=== PATIENT | female | born 1950 | race American Indian/Alaskan Native ===

== ENCOUNTER 2016-07-07 16:45 | Emergency (ER) | payer MEDICARE ==
[2016-07-07 16:50] VITALS: BP 151/79; PULSE 89; RESP 18; TEMP 99.1
--- NOTE | 2016-07-07 17:28 | RAD ---
HISTORY: cough COMPARISON: Chest x-ray performed 08/19/14 TECHNIQUE: Chest PA and lateral FINDINGS: Examination limited by habitus. LUNGS: No focal consolidation. Please note that chest x-ray has limited sensitivity for the detection of pulmonary masses. PLEURA: No significant pleural effusion identified. No definite pneumothorax . CARDIOVASCULAR: Heart size appears within normal limits. Faint atherosclerotic calcifications of the aorta. OSSEOUS STRUCTURES: Degenerative changes of the spine. VISUALIZED UPPER ABDOMEN: Unremarkable. OTHER FINDINGS: None. IMPRESSION: No focal consolidation, significant pleural effusion, or definite pneumothorax identified.
--- NOTE | 2016-07-07 17:36 | C.PDOC ---
<Mirella Boston - Last Filed: 07/07/16 17:34> <ShaheedJudy bedolla - Last Filed: 07/07/16 17:56> Time Seen by Provider: 07/07/16 17:07 Chief Complaint (Nursing): Cough, Cold, Congestion Past Medical History - Medical History PMH: Pneumonia (walking) Family History: States: Unknown Family Hx - Social History Hx Tobacco Use: No Hx Alcohol Use: No Hx Substance Use: No - Immunization History Hx Tetanus Toxoid Vaccination: No Hx Influenza Vaccination: No Hx Pneumococcal Vaccination: No <Mirella Boston - Last Filed: 07/07/16 17:34> Reviewed: Historical Data, Nursing Documentation, Vital Signs Family History: States: No Known Family Hx <Judy Hummel - Last Filed: 07/07/16 17:56> Vital Signs: Last Vital Signs Temp 99.1 F 07/07/16 16:48 Pulse 89 07/07/16 16:48 Resp 18 07/07/16 16:48 BP 151/79 H 07/07/16 16:48 Pulse Ox 95 07/07/16 17:56 Review Of Systems Except As Marked, All Systems Reviewed And Found Negative. Constitutional: Positive for: Other (myalgia). Negative for: Fever, Chills ENT: Positive for: Throat Pain Respiratory: Positive for: Cough. Negative for: Shortness of Breath Gastrointestinal: Negative for: Nausea, Vomiting, Abdominal Pain <Judy Hummel - Last Filed: 07/07/16 17:56> Physical Exam - Physical Exam Appears: Non-toxic, No Acute Distress Skin: Warm, Dry Head: Atraumatic, Normacephalic Eye(s): bilateral: PERRL, EOMI Ear(s): Bilateral: TM Obscured By Wax Nose: Normal Oral Mucosa: Moist Tongue: Normal Appearing Lips: Normal Appearing Throat: Normal Neck: Normal ROM, Supple Lymphatic: No Adenopathy Chest: Symmetrical Cardiovascular: Rhythm Regular Respiratory: Normal Breath Sounds, No Rales, No Rhonchi, No Wheezing Gastrointestinal/Abdominal: Soft, No Tenderness Back: Normal Inspection Extremity: Normal ROM Neurological/Psych: Oriented x3, Normal Speech, Normal Cognition Gait: Steady <Judy Hummel - Last Filed: 04/15/17 17:56> ED Course And Treatment O2 Sat by Pulse Oximetry: 95 <Mirella Boston - Last Filed: 07/07/16 17:34> O2 Sat by Pulse Oximetry: 95 (room air) Pulse Ox Interpretation: Normal - Other Rad chest x-ray X-Ray: Read By Radiologist (Lisa Christensen) Interpretation: HISTORY: cough. COMPARISON: Chest x-ray performed 08/19/14. TECHNIQUE: Chest PA and lateral. FINDINGS: Examination limited by habitus. LUNGS: No focal consolidation. Please note that chest x-ray has limited sensitivity for the detection of pulmonary masses. PLEURA: No significant pleural effusion identified. No definite pneumothorax . CARDIOVASCULAR: Heart size appears within normal limits. Faint atherosclerotic calcifications of the aorta. OSSEOUS STRUCTURES: Degenerative changes of the spine. VISUALIZED UPPER ABDOMEN: Unremarkable. OTHER FINDINGS: None. IMPRESSION: No focal consolidation, significant pleural effusion, or definite pneumothorax identified. <Judy Hummel - Last Filed: 07/07/16 17:56> Disposition Counseled Patient/Family Regarding: Diagnosis, Need For Followup - Disposition Disposition Time: 17:34 <Mirella Boston - Last Filed: 07/07/16 17:34> <Judy Hummel - Last Filed: 07/07/16 17:56> - Disposition Referrals: [facility] at [facility] [Outside] Additional Instructions: Take Mucinex or Robitussen for cough. Take Tylenol or Motrin for pain. Follow up in medical clinic next week, Return to ER for any worsnening symptoms. 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 - Scribe Statement The provider has reviewed the documentation as recorded by the Scribe <Judy Hummel - Last Filed: 07/07/16 17:56> - Scribe Statement Nedra Dickinson All medical record entries made by the Scribe were at my direction and personally dictated by me. I have reviewed the chart and agree that the record accurately reflects my personal performance of the history, physical exam, medical decision making, and the department course for this patient. I have also personally directed, reviewed, and agree with the discharge instructions and disposition. (Judy Hummel)
[2016-07-07 17:58] VITALS: O2SAT 100
--- NOTE | 2016-07-07 17:58 | C.PDOC ---
History Of Present Illness 65 year old patient, with a past medical history of pneumonia, presents to the ED complaining of a productive cough with clear to white sputum for the past 3 days. Patient also complains of a sore throat and myalgia. Patient denies fever , chills, shortness of breath, nausea, vomiting, or abdominal pain. Time Seen by Provider: 07/07/16 17:07 Chief Complaint (Nursing): Cough, Cold, Congestion History Per: Patient History/Exam Limitations: no limitations Onset/Duration Of Symptoms: Days (3) Current Symptoms Are (Timing): Still Present Location Of Pain: Throat, Diffuse Myalgias Associated Symptoms: Sore Throat, Cough, Myalgias Ear Symptoms: Bilateral: None Severity: Mild Pain Scale Rating Of: 3 Recent travel outside of the [place]: No Past Medical History Reviewed: Historical Data, Nursing Documentation, Vital Signs Vital Signs: Last Vital Signs Temp 99.1 F 07/07/16 16:48 Pulse 89 07/07/16 16:48 Resp 18 07/07/16 16:48 BP 151/79 H 07/07/16 16:48 Pulse Ox 100 07/07/16 17:58 - Medical History PMH: Pneumonia (walking) Family History: States: Unknown Family Hx - Social History Hx Tobacco Use: No Hx Alcohol Use: No Hx Substance Use: No - Immunization History Hx Tetanus Toxoid Vaccination: No Hx Influenza Vaccination: No Hx Pneumococcal Vaccination: No Review Of Systems Except As Marked, All Systems Reviewed And Found Negative. Constitutional: Positive for: Other (myalgia). Negative for: Fever, Chills ENT: Positive for: Throat Pain Respiratory: Positive for: Cough. Negative for: Shortness of Breath Gastrointestinal: Negative for: Nausea, Vomiting, Abdominal Pain Physical Exam - Physical Exam Appears: Non-toxic, No Acute Distress Skin: Warm, Dry Head: Atraumatic, Normacephalic Eye(s): bilateral: PERRL, EOMI Ear(s): Bilateral: TM Obscured By Wax Nose: Normal Oral Mucosa: Moist Tongue: Normal Appearing Lips: Normal Appearing Throat: Normal Neck: Normal ROM, Supple Lymphatic: No Adenopathy Cardiovascular: Rhythm Regular Respiratory: Normal Breath Sounds, No Rales, No Rhonchi, No Wheezing Gastrointestinal/Abdominal: Soft, No Tenderness Back: Normal Inspection, No CVA Tenderness Extremity: Normal ROM Neurological/Psych: Oriented x3 Gait: Steady ED Course And Treatment O2 Sat by Pulse Oximetry: 100 (room air) Pulse Ox Interpretation: Normal - Other Rad chest x-ray X-Ray: Read By Radiologist (Lisa Christensen) Interpretation: HISTORY: cough. COMPARISON: Chest x-ray performed 08/19/14. TECHNIQUE: Chest PA and lateral. FINDINGS: Examination limited by habitus. LUNGS: No focal consolidation. Please note that chest x-ray has limited sensitivity for the detection of pulmonary masses. PLEURA: No significant pleural effusion identified. No definite pneumothorax . CARDIOVASCULAR: Heart size appears within normal limits. Faint atherosclerotic calcifications of the aorta. OSSEOUS STRUCTURES: Degenerative changes of the spine. VISUALIZED UPPER ABDOMEN: Unremarkable. OTHER FINDINGS: None. IMPRESSION: No focal consolidation, significant pleural effusion, or definite pneumothorax identified. Disposition - Disposition Referrals: [facility] at [facility] [Outside] Disposition: HOME/ ROUTINE Disposition Time: 17:34 Condition: STABLE Additional Instructions: Take Mucinex or Robitussen for cough. Take Tylenol or Motrin for pain. Follow up in medical clinic next week, Return to ER for any worsnening symptoms. 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 - Scribe Statement The provider has reviewed the documentation as recorded by the Scribe Nedra Dickinson All medical record entries made by the Scribe were at my direction and personally dictated by me. I have reviewed the chart and agree that the record accurately reflects my personal performance of the history, physical exam, medical decision making, and the department course for this patient. I have also personally directed, reviewed, and agree with the discharge instructions and disposition.
== END 2016-07-07 17:41 | disposition home or self-care (01) ==
LOC: C.ER 16:45
DX: J06.9 Acute upper respiratory infection, unspecified (principal)